=== PATIENT | male | born 1955 | race Caucasian/White ===

== ENCOUNTER 2018-04-22 12:00 | Emergency (ER) | payer MEDICARE, OTHER ==
[~2018-04-22] VITALS: Ht 185.4 cm; Wt 68.0 kg
[2018-04-22 12:37] VITALS: BP 131/93
[2018-04-22] MEDS ORDERED: TRAM50TA2 PO (14:18)
[2018-04-22] MEDS ORDERED: ketorolac trometh inj. 60 MG/2 ML VIAL IM ONE (14:20)
== END 2018-04-22 14:42 | disposition home or self-care (01) ==
LOC: ER 12:01
DX: S86.811A Strain of other muscle(s) and tendon(s) at lower leg level, right leg, initial encounter (principal); Z87.820 Personal history of traumatic brain injury; X58.XXXA Exposure to other specified factors, initial encounter; Y93.89 Activity, other specified; Y92.89 Other specified places as the place of occurrence of the external cause; Y99.9 Unspecified external cause status
CPT/HCPCS: 96372; 99283; J1885

== ENCOUNTER 2020-01-13 08:49 | Emergency (ER) | payer OTHER ==
[~2020-01-13] VITALS: Ht 188 cm; Wt 71.8 kg
[2020-01-13] MEDS ORDERED: tamsulosin 0.4mg capsule PO STA (09:28)
[2020-01-13] MEDS ORDERED: morphine 4 MG/ML inj SYRINge IV ONE (09:30)
[2020-01-13] MEDS ORDERED: normal saline 1000ML IV soln IVB ONE (09:30)
[2020-01-13] MEDS ORDERED: ondansetron/PF 4mg/2ml inj IV ONE (09:30)
[2020-01-13 09:38] LABS: BASOPHILS # (AUTO) 0.1 X10'3 (0-0.2); EOSINOPHILS # (AUTO) 0.1 X10'3 (0-0.9); EOSINOPHILS % (AUTO) 1.9 % (0-6); HEMATOCRIT 40.1 % (42.0-52.0); HEMOGLOBIN 13.7 g/dl (14.0-17.9); LYMPHOCYTES # (AUTO) 1.3 X10'3 (1.1-4.8); LYMPHOCYTES % (AUTO) 18.5 % (21-51); MEAN CORPUSCULAR HEMOGLOBIN 31.5 PG (27.0-31.0); MEAN CORPUSCULAR HGB CONC 34.2 g/dL (33.0-36.5); MEAN CORPUSCULAR VOLUME 92.3 FL (78-98); MEAN PLATELET VOLUME 8.8 FL (7.4-10.4); MONOCYTES # (AUTO) 0.5 X10'3 (0-0.9); NEUTROPHILS # (AUTO) 5.2 X10'3 (1.8-7.7); NEUTROPHILS % (AUTO) 71.6 % (42-75); PLATELET COUNT 183 X10'3 (140-440); RED BLOOD COUNT 4.35 X10'6 (4.70-6.10); RED CELL DISTRIBUTION WIDTH 13.2 % (11.5-14.5); WHITE BLOOD COUNT 7.3 X10'3 (4.5-11.0)
[2020-01-13 09:49] LABS: CLARITY,URINE CLOUDY (Clear); COLOR,URINE YELLOW (Yellow); GLUCOSE, URINE NEGATIVE (Neg); KETONES,URINE NEGATIVE (Neg); LEUKOCYTE ESTERASE ,URINE TRACE (Neg); NITRITES, URINE NEGATIVE (Neg); OCCULT BLOOD,URINE LARGE (Neg); PH,URINE 5.5 (4.8-8.0); PROTEIN,URINE 30 mg/dl (Neg); UA COLLECTION TYPE NON-SPECIFIED; UROBILINOGEN,URINE 0.2 E.U/dL (0.2-1.0)
[2020-01-13 09:54] LABS: ANION GAP 8 (8-16); CHLORIDE 107 MMOL/L (99-107); POTASSIUM 3.7 MMOL/L (3.5-5.1); SODIUM 138 MMOL/L (135-145); TOTAL CARBON DIOXIDE 23.5 MMOL/L (24-32)
[2020-01-13 09:56] LABS: BACTERIA,URINE FEW /HPF (Neg); RBC,URINE TNTC /HPF (0-2)
[2020-01-13 09:57] LABS: MUCUS STRANDS NONE SEEN /LPF (Neg); SQUAMOUS EPITHELIAL CELL,UR FEW /LPF (FEW); TRANSITIONAL EPI CELLS,URINE FEW /HPF
[2020-01-13 09:59] LABS: ALANINE AMINOTRANSFERASE 20 U/L (12-78); ALBUMIN 3.2 G/DL (3.4-5.0); ALKALINE PHOSPHATASE 79 IU/L (46-116); ASPARTATE AMINO TRANSFERASE 17 U/L (10-37); BILIRUBIN,TOTAL 0.6 MG/DL (0.1-1.0); BLOOD UREA NITROGEN 14 MG/DL (7-18); CALCIUM 8.2 MG/DL (8.5-10.1); GLUCOSE 159 MG/DL (70-104); TOTAL PROTEIN 6.3 G/DL (6.4-8.2); eGFR 76 ML/MIN
--- NOTE | 2020-01-13 10:39 | NUR ---
GUERITA [phone] CAREGIVER
[2020-01-13 11:27] VITALS: BP 168/99
[2020-01-13] MEDS ORDERED: DOXY100C77 PO (11:39)
[2020-01-13] MEDS ORDERED: HYDR-4353 PO (12:41)
== END 2020-01-13 13:37 | disposition home or self-care (01) ==
LOC: ER 08:49
DX: N30.90 Cystitis, unspecified without hematuria (principal); N13.30 Unspecified hydronephrosis; R30.0 Dysuria; R31.0 Gross hematuria; Z72.89 Other problems related to lifestyle; Z79.899 Other long term (current) drug therapy
CPT/HCPCS: 36415; 74176; 80053; 81001; 85025; 87088; 96374; 96375; 99284; J2270; J2405; J7030

== ENCOUNTER 2020-02-05 03:47 | Inpatient (IN) | payer OTHER ==
[~2020-02-05] VITALS: Ht 188 cm; Wt 75.0 kg
[2020-02-05] MEDS ORDERED: normal saline 1000ML IV soln IVB ONE (04:00)
[2020-02-05] MEDS ORDERED: ondansetron/PF 4mg/2ml inj IV ONE (04:00)
[2020-02-05] MEDS ORDERED: ketorolac trometh. 30mg/ml inj. IV ONE (04:00)
[2020-02-05] MEDS: morphine 4 MG/ML inj SYRINge IV PRN ×4 (04:13→09:25)
[2020-02-05 04:29] LABS: ALANINE AMINOTRANSFERASE 36 U/L (12-78); ALBUMIN 3.8 G/DL (3.4-5.0); ALKALINE PHOSPHATASE 101 IU/L (46-116); ANION GAP 5 (8-16); ASPARTATE AMINO TRANSFERASE 28 U/L (10-37); BILIRUBIN,TOTAL 0.4 MG/DL (0.1-1.0); BLOOD UREA NITROGEN 15 MG/DL (7-18); BUN/CREATININE RATIO 12.6 (5.4-32.0); CALCIUM 9.5 MG/DL (8.5-10.1); CHLORIDE 104 MMOL/L (99-107); CREATININE 1.19 MG/DL (0.60-1.10); GLUCOSE 115 MG/DL (70-104); POTASSIUM 4.6 MMOL/L (3.5-5.1); SODIUM 139 MMOL/L (135-145); TOTAL CARBON DIOXIDE 29.7 MMOL/L (24-32); TOTAL PROTEIN 7.5 G/DL (6.4-8.2); eGFR 62 ML/MIN
[2020-02-05 04:34] LABS: BASOPHILS # (AUTO) 0.1 X10'3 (0-0.2); BASOPHILS % (AUTO) 1.1 % (0-1); EOSINOPHILS # (AUTO) 0.1 X10'3 (0-0.9); HEMATOCRIT 41.1 % (42.0-52.0); HEMOGLOBIN 14.2 g/dl (14.0-17.9); LYMPHOCYTES % (AUTO) 28.2 % (21-51); MEAN CORPUSCULAR HEMOGLOBIN 31.5 PG (27.0-31.0); MEAN CORPUSCULAR HGB CONC 34.5 g/dL (33.0-36.5); MEAN CORPUSCULAR VOLUME 91.2 FL (78-98); MEAN PLATELET VOLUME 8.5 FL (7.4-10.4); MONOCYTES # (AUTO) 0.6 X10'3 (0-0.9); MONOCYTES % (AUTO) 8.5 % (2-12); NEUTROPHILS # (AUTO) 4.3 X10'3 (1.8-7.7); NEUTROPHILS % (AUTO) 60.2 % (42-75); PLATELET COUNT 209 X10'3 (140-440); RED BLOOD COUNT 4.51 X10'6 (4.70-6.10); WHITE BLOOD COUNT 7.1 X10'3 (4.5-11.0)
--- NOTE | 2020-02-05 04:50 | NUR ---
Continous bladder irrigation initiated per EDP orders. Pt. tolerated well.
[2020-02-05 04:53] LABS: CLARITY,URINE TURBID (Clear); COLOR,URINE RED (Yellow); UA COLLECTION TYPE URINAL
[2020-02-05] MEDS ORDERED: NO HOME MEDS (05:02)
[2020-02-05 05:10] LABS: BACTERIA,URINE NONE SEEN /HPF (Neg); MUCUS STRANDS NONE SEEN /LPF (Neg); RBC,URINE TNTC /HPF (0-2); SQUAMOUS EPITHELIAL CELL,UR NONE SEEN /LPF (FEW); WBC,URINE 0-4 /HPF (0-4)
--- NOTE | 2020-02-05 06:00 | NUR ---
Patient in room [facility]. I have received report from ALEC Truong and had the opportunity to ask questions and assume patient care. Addendum: 02/05/20 at 1834 by Paige Giang RN Addendum; Evie MICHAEL, at 1000 not 0600.
[2020-02-05] MEDS ORDERED: magnesium 4gm in 100ml NS 100 ML IV PRN (06:15)
[2020-02-05] MEDS ORDERED: HYDROmorphone inj. 0.5 MG/0.5 ML DISP.SYRIN IV PRN (06:15)
[2020-02-05] MEDS ORDERED: ondansetron/PF 4mg/2ml inj IV PRN (06:15)
[2020-02-05] MEDS ORDERED: magnesium hydroxide 30ml (MOM) UD suspension PO PRN (06:15)
[2020-02-05] MEDS ORDERED: mag hydrox/Alum hydrox/simeth 30ml oral suspension PO PRN (06:15)
[2020-02-05] MEDS ORDERED: potassium CL 10mEq/100ml bag 100 ML IV PRN ×2 (06:15)
[2020-02-05] MEDS ORDERED: magnesium 2GM in 50ml NS 50 ML IV PRN (06:15)
[2020-02-05] MEDS ORDERED: ipratropium/albuterol 3ml nebule NEB PRN (06:15)
[2020-02-05] MEDS ORDERED: acetaminophen 325mg tablet PO PRN (06:15)
[2020-02-05] MEDS ORDERED: potassium Cl 20 mEq SR tablet PO PRN ×2 (06:15)
--- NOTE | 2020-02-05 06:25 | NUR ---
drained 700cc from walker pink in color. continuous irrigation
--- NOTE | 2020-02-05 06:44 | NUR ---
pt c/o thirst. mouth swabs given.
--- NOTE | 2020-02-05 07:05 | NUR ---
SLEEPING QUIETLY AT THIS TIME.
[2020-02-05] MEDS: K and/or MAG REPLACEMENT MC SCH ×2 (08:00→20:00)
[2020-02-05] MEDS: HYDROmorphone 1 mg/ml syringe IV PRN ×3 (09:45→20:48)
--- NOTE | 2020-02-05 09:54 | NUR ---
1200cc urine out (CBI)
--- NOTE | 2020-02-05 09:55 | NUR ---
no relief from ms 4mg. dilaudid 1mg iv given by mukesh lozano
[2020-02-05 10:00] VITALS: BP 154/78
--- NOTE | 2020-02-05 10:10 | NUR ---
pt states, pain is now an 810
--- NOTE | 2020-02-05 18:33 | NUR ---
Problems reprioritized. Patient report given, questions answered & plan of care reviewed with ALEC Chun.
[2020-02-05 19:00] VITALS: BP 156/91
[2020-02-05] MEDS ORDERED: opium/belladonna alkaloids No. 15A 30mg rectal suppository RC ONE (21:00)
[2020-02-05] MEDS: tolterodine 2mg SR capsule (24hr) PO SCH (22:16)
[2020-02-06] VITALS: BP 172/83
--- NOTE | 2020-02-06 01:31 | NUR ---
pt resting comfortably at this time after many episodes of painful bladder spasms throughout earlier. will continue to monitor
[2020-02-06] MEDS: HYDROmorphone 1 mg/ml syringe IV PRN ×4 (02:10→20:22)
[2020-02-06 06:13] LABS: BASOPHILS # (AUTO) 0.1 X10'3 (0-0.2); BASOPHILS % (AUTO) 0.7 % (0-1); EOSINOPHILS # (AUTO) 0.1 X10'3 (0-0.9); EOSINOPHILS % (AUTO) 0.8 % (0-6); HEMATOCRIT 39.3 % (42.0-52.0); HEMOGLOBIN 13.7 g/dl (14.0-17.9); LYMPHOCYTES # (AUTO) 1.5 X10'3 (1.1-4.8); LYMPHOCYTES % (AUTO) 16.6 % (21-51); MEAN CORPUSCULAR HEMOGLOBIN 31.8 PG (27.0-31.0); MEAN CORPUSCULAR HGB CONC 34.9 g/dL (33.0-36.5); MEAN CORPUSCULAR VOLUME 91.2 FL (78-98); MEAN PLATELET VOLUME 8.4 FL (7.4-10.4); MONOCYTES # (AUTO) 0.6 X10'3 (0-0.9); MONOCYTES % (AUTO) 6.2 % (2-12); NEUTROPHILS # (AUTO) 6.8 X10'3 (1.8-7.7); NEUTROPHILS % (AUTO) 75.7 % (42-75); PLATELET COUNT 173 X10'3 (140-440); RED BLOOD COUNT 4.31 X10'6 (4.70-6.10); RED CELL DISTRIBUTION WIDTH 12.7 % (11.5-14.5)
[2020-02-06 06:23] LABS: ALANINE AMINOTRANSFERASE 32 U/L (12-78); ALBUMIN 3.5 G/DL (3.4-5.0); ALBUMIN/GLOBULIN RATIO 1.1 (1.1-1.5); ALKALINE PHOSPHATASE 76 IU/L (46-116); ANION GAP 7 (8-16); ASPARTATE AMINO TRANSFERASE 21 U/L (10-37); BILIRUBIN,TOTAL 0.8 MG/DL (0.1-1.0); BLOOD UREA NITROGEN 15 MG/DL (7-18); BUN/CREATININE RATIO 15.2 (5.4-32.0); CALCIUM 9.3 MG/DL (8.5-10.1); CHLORIDE 103 MMOL/L (99-107); CREATININE 0.99 MG/DL (0.60-1.10); GLUCOSE 99 MG/DL (70-104); MAGNESIUM 1.8 MG/DL (1.5-2.4); SODIUM 138 MMOL/L (135-145); TOTAL CARBON DIOXIDE 27.9 MMOL/L (24-32); TOTAL PROTEIN 6.8 G/DL (6.4-8.2); eGFR 76 ML/MIN
--- NOTE | 2020-02-06 06:31 | NUR ---
Patient in room [facility]. I have received report from ALEC Chun and had the opportunity to ask questions and assume patient care.
[2020-02-06 07:00] VITALS: BP 168/82
[2020-02-06] MEDS: K and/or MAG REPLACEMENT MC SCH ×2 (08:00→20:00)
[2020-02-06] MEDS: tolterodine 2mg SR capsule (24hr) PO SCH (08:02)
[2020-02-06] MEDS ORDERED: pneumococcal 23-VAL P-sac vacc 25 mcg/0.5ml vial IMVAC ONE (10:00)
[2020-02-06 11:16] VITALS: BP 153/84
[2020-02-06] MEDS ORDERED: LORazepam 2 mg/ml vial IV ONE (12:10)
[2020-02-06 13:24] LABS: URINE AMPHETAMINE SCREEN NEGATIVE (Neg); URINE BARBITUATE SCREEN NEGATIVE (Neg); URINE BENZODIAZEPINES SCREEN NEGATIVE (Neg); URINE CANNABINOID SCREEN NEGATIVE (Neg); URINE COCAINE SCREEN NEGATIVE (Neg); URINE METHADONE SCREEN NEGATIVE (Neg); URINE OPIATE SCREEN POSITIVE (Neg); URINE PHENCYCLIDINE SCREEN NEGATIVE (Neg)
[2020-02-06] MEDS: LORazepam 2 mg/ml vial IV PRN ×2 (14:24→20:00)
--- NOTE | 2020-02-06 18:16 | NUR ---
Problems reprioritized. Patient report given, questions answered & plan of care reviewed with ALEC Adams.
--- NOTE | 2020-02-06 18:35 | NUR ---
Patient in room [facility]. I have received report from Rosa MICHAEL and had the opportunity to ask questions and assume patient care.
[2020-02-06 19:45] VITALS: BP 168/95
[2020-02-06] MEDS: opium/belladonna alkaloids No. 15A 30mg rectal suppository RC PRN (20:27)
[2020-02-06] MEDS: metoprolol succinate 25mg (24-HOUR) SR. Tablet PO SCH (22:36)
[2020-02-06 23:44] VITALS: BP 155/85
[2020-02-07] MEDS: LORazepam 2 mg/ml vial IV PRN ×2 (01:04→23:09)
[2020-02-07] MEDS: HYDROmorphone 1 mg/ml syringe IV PRN ×3 (02:29→19:41)
[2020-02-07 05:20] LABS: BASOPHILS % (AUTO) 0.4 % (0-1); EOSINOPHILS # (AUTO) 0.1 X10'3 (0-0.9); EOSINOPHILS % (AUTO) 0.5 % (0-6); HEMATOCRIT 41.1 % (42.0-52.0); HEMOGLOBIN 14.3 g/dl (14.0-17.9); LYMPHOCYTES # (AUTO) 1.1 X10'3 (1.1-4.8); LYMPHOCYTES % (AUTO) 10.4 % (21-51); MEAN CORPUSCULAR HEMOGLOBIN 31.7 PG (27.0-31.0); MEAN CORPUSCULAR HGB CONC 34.9 g/dL (33.0-36.5); MEAN CORPUSCULAR VOLUME 90.8 FL (78-98); MEAN PLATELET VOLUME 8.2 FL (7.4-10.4); MONOCYTES # (AUTO) 0.7 X10'3 (0-0.9); MONOCYTES % (AUTO) 6.9 % (2-12); NEUTROPHILS # (AUTO) 8.8 X10'3 (1.8-7.7); NEUTROPHILS % (AUTO) 81.8 % (42-75); PLATELET COUNT 192 X10'3 (140-440); RED BLOOD COUNT 4.52 X10'6 (4.70-6.10); RED CELL DISTRIBUTION WIDTH 12.6 % (11.5-14.5); WHITE BLOOD COUNT 10.8 X10'3 (4.5-11.0)
[2020-02-07 05:31] LABS: ALANINE AMINOTRANSFERASE 37 U/L (12-78); ALBUMIN 3.7 G/DL (3.4-5.0); ALKALINE PHOSPHATASE 83 IU/L (46-116); ANION GAP 10 (8-16); ASPARTATE AMINO TRANSFERASE 28 U/L (10-37); BILIRUBIN,TOTAL 0.8 MG/DL (0.1-1.0); BLOOD UREA NITROGEN 21 MG/DL (7-18); BUN/CREATININE RATIO 19.6 (5.4-32.0); CALCIUM 9.5 MG/DL (8.5-10.1); CHLORIDE 103 MMOL/L (99-107); CREATININE 1.07 MG/DL (0.60-1.10); GLUCOSE 148 MG/DL (70-104); MAGNESIUM 1.9 MG/DL (1.5-2.4); SODIUM 139 MMOL/L (135-145); TOTAL PROTEIN 7.4 G/DL (6.4-8.2); eGFR 70 ML/MIN
--- NOTE | 2020-02-07 06:35 | NUR ---
Reported off to Nisreen MICHAEL
--- NOTE | 2020-02-07 06:59 | NUR ---
Total urine output for Noc shift was 35,850cc. Total CBI was [id number]
[2020-02-07 07:00] VITALS: BP 156/92
[2020-02-07] MEDS: K and/or MAG REPLACEMENT MC SCH ×2 (08:00→20:00)
[2020-02-07] MEDS: opium/belladonna alkaloids No. 15A 30mg rectal suppository RC PRN ×2 (09:07→21:33)
[2020-02-07 11:00] VITALS: BP 122/80
[2020-02-07] MEDS ORDERED: LIDOcaine 1%/PF 5ML 10 MG/ML VIAL ONE (11:36)
[2020-02-07] MEDS ORDERED: fentaNYL/PF 50MCG/1 ML 2ML syringe ONE ×2 (11:36→11:55)
[2020-02-07] MEDS ORDERED: iohexol 300 MG/1 ML 50ml polymer ONE (11:36)
[2020-02-07] MEDS ORDERED: midazolam 2 mg/2 ml injection ONE ×2 (11:36→11:38)
[2020-02-07] MEDS ORDERED: levoFLOXACIN-Levaquin 500mg/D5 100 ML IV ONE (11:50)
[2020-02-07] MEDS: metoprolol succinate 25mg (24-HOUR) SR. Tablet PO SCH (14:18)
[2020-02-07] MEDS: tolterodine 2mg SR capsule (24hr) PO SCH (14:18)
--- NOTE | 2020-02-07 18:41 | NUR ---
Problems reprioritized. Patient report given, questions answered & plan of care reviewed with Opal MICHAEL.
--- NOTE | 2020-02-07 18:45 | NUR ---
Patient in room [facility]. I have received report from IVONE MICHAEL and had the opportunity to ask questions and assume patient care.
[2020-02-07 20:00] VITALS: BP 143/84
[2020-02-08] VITALS: BP 132/82
[2020-02-08] MEDS: HYDROmorphone 1 mg/ml syringe IV PRN ×3 (00:39→09:56)
--- NOTE | 2020-02-08 02:59 | NUR ---
The 0104 dose of ativan on 02/06 was given to patient(0.5mg), and then wasted 0.5mg with Melissa Dinero RN. However, the machine timed out and did not recognize the pull, and then charge accounts audit clerk corrected the amounts so does not show in the omnicell.
[2020-02-08] MEDS: LORazepam 2 mg/ml vial IV PRN (03:54)
[2020-02-08] MEDS: opium/belladonna alkaloids No. 15A 30mg rectal suppository RC PRN (04:42)
[2020-02-08 04:50] LABS: BASOPHILS # (AUTO) 0.1 X10'3 (0-0.2); BASOPHILS % (AUTO) 0.5 % (0-1); EOSINOPHILS % (AUTO) 0.4 % (0-6); HEMATOCRIT 40.2 % (42.0-52.0); HEMOGLOBIN 13.9 g/dl (14.0-17.9); LYMPHOCYTES # (AUTO) 1.6 X10'3 (1.1-4.8); MEAN CORPUSCULAR HEMOGLOBIN 31.5 PG (27.0-31.0); MEAN CORPUSCULAR HGB CONC 34.7 g/dL (33.0-36.5); MEAN PLATELET VOLUME 8.6 FL (7.4-10.4); MONOCYTES # (AUTO) 0.9 X10'3 (0-0.9); MONOCYTES % (AUTO) 8.1 % (2-12); NEUTROPHILS # (AUTO) 8.7 X10'3 (1.8-7.7); PLATELET COUNT 203 X10'3 (140-440); RED BLOOD COUNT 4.42 X10'6 (4.70-6.10); RED CELL DISTRIBUTION WIDTH 12.7 % (11.5-14.5); WHITE BLOOD COUNT 11.3 X10'3 (4.5-11.0)
[2020-02-08 04:59] LABS: ALANINE AMINOTRANSFERASE 21 U/L (12-78); ALBUMIN 3.6 G/DL (3.4-5.0); ALBUMIN/GLOBULIN RATIO 0.8 (1.1-1.5); ALKALINE PHOSPHATASE 82 IU/L (46-116); ANION GAP 11 (8-16); ASPARTATE AMINO TRANSFERASE 21 U/L (10-37); BILIRUBIN,TOTAL 0.7 MG/DL (0.1-1.0); BLOOD UREA NITROGEN 28 MG/DL (7-18); BUN/CREATININE RATIO 25.2 (5.4-32.0); CALCIUM 9.5 MG/DL (8.5-10.1); CHLORIDE 104 MMOL/L (99-107); CREATININE 1.11 MG/DL (0.60-1.10); GLUCOSE 146 MG/DL (70-104); MAGNESIUM 1.8 MG/DL (1.5-2.4); SODIUM 140 MMOL/L (135-145); TOTAL CARBON DIOXIDE 24.6 MMOL/L (24-32); TOTAL PROTEIN 7.9 G/DL (6.4-8.2); eGFR 67 ML/MIN
--- NOTE | 2020-02-08 06:50 | NUR ---
Patient in room [facility]. I have received report from Mary MICHAEL and had the opportunity to ask questions and assume patient care.
[2020-02-08 07:00] VITALS: BP 153/96
[2020-02-08] MEDS: metoprolol succinate 25mg (24-HOUR) SR. Tablet PO SCH (07:21)
[2020-02-08] MEDS: tolterodine 2mg SR capsule (24hr) PO SCH (07:21)
[2020-02-08] MEDS: HYDROcodone/acetaminophen 5mg/325mg tablet PO PRN ×2 (07:21→11:53)
[2020-02-08] MEDS: K and/or MAG REPLACEMENT MC SCH (07:26)
[2020-02-08 12:18] VITALS: BP 121/85
[2020-02-08] MEDS ORDERED: LORA-269 PO (15:07)
[2020-02-08] MEDS ORDERED: METO-395 PO (15:07)
[2020-02-08] MEDS ORDERED: HYDR-4353 PO (15:07)
[2020-02-08] MEDS ORDERED: PHEN-824 PO (15:07)
[2020-02-08] MEDS ORDERED: DET2LAC PO (15:07)
--- NOTE | 2020-02-08 17:25 | NUR ---
patient discharged to Al his child daycare worker. Patient discharge was gone over with patient directly and was verbalized over the phone with Al. Catheter care education was focal point for patient and caregiver as well as medication changes and additions. Patient left with walker in place and [facility]. Patient is to be referred to [facility] also. Patient left with RX in hand and transported down to private vehicle via wheel chair. IV taken out prior to discharge and canula was whole and intact upon inspection.
== END 2020-02-08 17:27 | disposition home health service (06) | DRG 694 ==
LOC: ER 03:47 → ED HOLD 06:11 → SUR 3N 10:28 → OBSVTOIN 02-06 09:00 → CMPBEDREQ 02-06 18:48
PROVIDERS: ADMIT Family Medicine; ATTEND Family Medicine
PROC: 0T9430Z Drainage of Left Kidney Pelvis with Drainage Device, Percutaneous Approach (ICD-10-PCS; principal; 2020-02-06)
DX: N13.2 Hydronephrosis with renal and ureteral calculous obstruction (principal); R31.0 Gross hematuria; N21.0 Calculus in bladder; F15.10 Other stimulant abuse, uncomplicated; F17.200 Nicotine dependence, unspecified, uncomplicated; N32.89 Other specified disorders of bladder; Z85.51 Personal history of malignant neoplasm of bladder; Z87.820 Personal history of traumatic brain injury; I10 Essential (primary) hypertension
CPT/HCPCS: 36415; 50432; 74176; 80053; 80305; 81001; 83735; 85025; 87081; 90732; 94760; 96374; 96375; 97161; 97530; 99152; 99153; 99285; C1729; C1769; G0378; J1170; J1885; J1956; J2060; J2250; J2270; J2405; J3010; J7030; Q9967

== ENCOUNTER 2020-02-09 17:06 | Emergency (ER) | payer OTHER, MEDICARE ==
[~2020-02-09] VITALS: Ht 185.4 cm; Wt 68.2 kg
[~2020-02-09 17:06] MED LIST: DET2LAC PO; HYDR-4353 PO; LORA-269 PO; METO-395 PO; PHEN-824 PO
[2020-02-09] MEDS ORDERED: HYDROmorphone 1 mg/ml syringe IV ONE ×2 (17:40→19:35)
[2020-02-09] MEDS ORDERED: normal saline 1000ML IV soln IVB ONE (20:40)
[2020-02-09 22:38] VITALS: BP 158/91
== END 2020-02-09 22:40 | disposition home or self-care (01) ==
LOC: ER 17:06
DX: R31.0 Gross hematuria (principal); F15.90 Other stimulant use, unspecified, uncomplicated; Z72.89 Other problems related to lifestyle; Z79.899 Other long term (current) drug therapy
CPT/HCPCS: 96361; 96374; 96376; 99285; J1170; J7030; 96375

== ENCOUNTER 2020-02-26 18:39 | Emergency (ER) | payer OTHER, MEDICARE ==
[~2020-02-26] VITALS: Ht 188 cm; Wt 67.7 kg
[2020-02-26 19:25] LABS: BASOPHILS # (AUTO) 0.1 X10'3 (0-0.2); BASOPHILS % (AUTO) 0.9 % (0-1); EOSINOPHILS # (AUTO) 0.1 X10'3 (0-0.9); EOSINOPHILS % (AUTO) 1.2 % (0-6); HEMATOCRIT 41.1 % (42.0-52.0); HEMOGLOBIN 14.3 g/dl (14.0-17.9); LYMPHOCYTES # (AUTO) 1.3 X10'3 (1.1-4.8); LYMPHOCYTES % (AUTO) 14.1 % (21-51); MEAN CORPUSCULAR HEMOGLOBIN 31.5 PG (27.0-31.0); MEAN CORPUSCULAR HGB CONC 34.7 g/dL (33.0-36.5); MEAN CORPUSCULAR VOLUME 90.7 FL (78-98); MEAN PLATELET VOLUME 8.2 FL (7.4-10.4); MONOCYTES # (AUTO) 0.5 X10'3 (0-0.9); MONOCYTES % (AUTO) 5.4 % (2-12); NEUTROPHILS # (AUTO) 7.3 X10'3 (1.8-7.7); NEUTROPHILS % (AUTO) 78.4 % (42-75); PLATELET COUNT 256 X10'3 (140-440); RED BLOOD COUNT 4.53 X10'6 (4.70-6.10); RED CELL DISTRIBUTION WIDTH 12.6 % (11.5-14.5); WHITE BLOOD COUNT 9.4 X10'3 (4.5-11.0)
[2020-02-26 19:26] LABS: GLUCOSE, URINE NEGATIVE (Neg); KETONES,URINE TRACE mg/dl (Neg); OCCULT BLOOD,URINE LARGE (Neg); PROTEIN,URINE >=300 mg/dl (Neg)
[2020-02-26 19:32] LABS: CLARITY,URINE CLOUDY (Clear); LEUKOCYTE ESTERASE ,URINE TRACE (Neg)
[2020-02-26 19:33] LABS: COLOR,URINE DARK YELLOW (Yellow); UA COLLECTION TYPE URINAL
[2020-02-26 19:34] LABS: ALANINE AMINOTRANSFERASE 37 U/L (12-78); ALBUMIN 3.8 G/DL (3.4-5.0); ALBUMIN/GLOBULIN RATIO 0.9 (1.1-1.5); ALKALINE PHOSPHATASE 105 IU/L (46-116); ANION GAP 10 (8-16); ASPARTATE AMINO TRANSFERASE 24 U/L (10-37); BILIRUBIN,TOTAL 0.8 MG/DL (0.1-1.0); BLOOD UREA NITROGEN 15 MG/DL (7-18); BUN/CREATININE RATIO 16.5 (5.4-32.0); CALCIUM 9.5 MG/DL (8.5-10.1); CHLORIDE 100 MMOL/L (99-107); CREATININE 0.91 MG/DL (0.60-1.10); GLUCOSE 177 MG/DL (70-104); LIPASE 90 U/L (73-393); POTASSIUM 4.1 MMOL/L (3.5-5.1); SODIUM 136 MMOL/L (135-145); TOTAL CARBON DIOXIDE 25.6 MMOL/L (24-32); eGFR 84 ML/MIN
[2020-02-26 19:34] LABS: NITRITES, URINE NEGATIVE (Neg)
[2020-02-26 19:35] LABS: BACTERIA,URINE FEW /HPF (Neg); RBC,URINE TNTC /HPF (0-2); SQUAMOUS EPITHELIAL CELL,UR FEW /LPF (FEW); WBC,URINE 20-30 /HPF (0-4)
[2020-02-26] MEDS ORDERED: levoFLOXACIN 250mg tablet PO ONE (19:45)
[2020-02-26] MEDS ORDERED: normal saline 1000ML IV soln IV ONE (19:45)
[2020-02-26] MEDS ORDERED: LEVO750T21 PO (20:21)
[2020-02-26] MEDS ORDERED: HYDR-4353 PO (20:22)
--- NOTE | 2020-02-26 20:29 | NUR ---
given levoquin 750 mg po and 1st of 2 liter ns bolus started. pts friend, tere, is in the parking lot waiting for him for discharge. pt to be dc'd once fluids infused.
[2020-02-26 20:30] VITALS: BP 151/85
== END 2020-02-26 21:16 | disposition home or self-care (01) ==
LOC: ER 18:39
DX: N39.0 Urinary tract infection, site not specified (principal); C67.9 Malignant neoplasm of bladder, unspecified; F15.90 Other stimulant use, unspecified, uncomplicated; Z72.89 Other problems related to lifestyle; Z79.899 Other long term (current) drug therapy
CPT/HCPCS: 36415; 80053; 81001; 83690; 85025; 87077; 87088; 87186; 96360; 99284; J7030

== ENCOUNTER 2020-02-27 00:59 | Emergency (ER) | payer OTHER, MEDICARE ==
[~2020-02-27] VITALS: Ht 188 cm; Wt 67.7 kg
[~2020-02-27 00:59] MED LIST changes: +LEVO750T21 PO
[2020-02-27] MEDS ORDERED: HYDROcodone/acetaminophen 5mg/325mg tablet PO ONE (03:00)
--- NOTE | 2020-02-27 03:03 | NUR ---
Call out made to pt's caregiver "Al," awaiting call back. MD requests to speak with the caregiver for safe discharge plan.
[2020-02-27] MEDS ORDERED: oxyCODONE IR 5mg (immed. release) tablet PO ONE (03:05)
--- NOTE | 2020-02-27 04:06 | NUR ---
Second call out placed to caregive "Al." Awaiting call back.
[2020-02-27 04:59] VITALS: BP 153/103
== END 2020-02-27 05:01 | disposition home or self-care (01) ==
LOC: ER 01:00
DX: N39.0 Urinary tract infection, site not specified (principal); R10.9 Unspecified abdominal pain; F17.200 Nicotine dependence, unspecified, uncomplicated; F15.90 Other stimulant use, unspecified, uncomplicated; Z79.899 Other long term (current) drug therapy
CPT/HCPCS: 99284

== ENCOUNTER 2020-05-14 14:44 | Emergency (ER) | payer OTHER, MEDICARE ==
[~2020-05-14] VITALS: Ht 177.8 cm; Wt 80.0 kg
[~2020-05-14 14:44] MED LIST changes: -HYDR-4353 PO; -LEVO750T21 PO
[2020-05-14] MEDS ORDERED: morphine 4 MG/ML inj SYRINge IV ONE (15:10)
[2020-05-14] MEDS ORDERED: ondansetron/PF 4mg/2ml inj IV ONE (15:10)
[2020-05-14 15:22] LABS: BASOPHILS # (AUTO) 0.1 X10'3 (0-0.2); BASOPHILS % (AUTO) 1.3 % (0-1); EOSINOPHILS # (AUTO) 0.2 X10'3 (0-0.9); EOSINOPHILS % (AUTO) 2.3 % (0-6); HEMATOCRIT 36.2 % (42.0-52.0); HEMOGLOBIN 12.4 g/dl (14.0-17.9); LYMPHOCYTES # (AUTO) 1.2 X10'3 (1.1-4.8); LYMPHOCYTES % (AUTO) 15.3 % (21-51); MEAN CORPUSCULAR HEMOGLOBIN 30.2 PG (27.0-31.0); MEAN CORPUSCULAR HGB CONC 34.2 g/dL (33.0-36.5); MEAN CORPUSCULAR VOLUME 88.3 FL (78-98); MEAN PLATELET VOLUME 7.5 FL (7.4-10.4); MONOCYTES # (AUTO) 0.6 X10'3 (0-0.9); NEUTROPHILS % (AUTO) 74.1 % (42-75); PLATELET COUNT 247 X10'3 (140-440); RED CELL DISTRIBUTION WIDTH 13.8 % (11.5-14.5)
[2020-05-14 15:38] LABS: ALANINE AMINOTRANSFERASE 22 U/L (12-78); ALBUMIN 3.1 G/DL (3.4-5.0); ALBUMIN/GLOBULIN RATIO 0.8 (1.1-1.5); ALKALINE PHOSPHATASE 94 IU/L (46-116); ANION GAP 5 (8-16); ASPARTATE AMINO TRANSFERASE 17 U/L (10-37); BILIRUBIN,TOTAL 0.5 MG/DL (0.1-1.0); BLOOD UREA NITROGEN 11 MG/DL (7-18); BUN/CREATININE RATIO 13.8 (5.4-32.0); CALCIUM 9.3 MG/DL (8.5-10.1); CHLORIDE 106 MMOL/L (99-107); GLUCOSE 226 MG/DL (70-104); LIPASE 62 U/L (73-393); SODIUM 140 MMOL/L (135-145); TOTAL CARBON DIOXIDE 28.9 MMOL/L (24-32); TOTAL PROTEIN 6.9 G/DL (6.4-8.2); eGFR > 90 ML/MIN
[2020-05-14 16:05] LABS: CLARITY,URINE TURBID (Clear); COLOR,URINE YELLOW (Yellow); GLUCOSE, URINE 100 mg/dl (Neg); KETONES,URINE NEGATIVE (Neg); LEUKOCYTE ESTERASE ,URINE MODERATE (Neg); NITRITES, URINE POSITIVE (Neg); OCCULT BLOOD,URINE LARGE (Neg); PROTEIN,URINE >=300 mg/dl (Neg)
[2020-05-14 16:07] LABS: UA COLLECTION TYPE CLN CATCH MIDSTREAM
[2020-05-14 16:11] LABS: SQUAMOUS EPITHELIAL CELL,UR FEW /LPF (FEW); WBC,URINE TNTC /HPF (0-4)
[2020-05-14 16:12] LABS: RBC,URINE TNTC /HPF (0-2)
[2020-05-14 16:13] LABS: BACTERIA,URINE 3+ /HPF (Neg); WBC CLUMPS,URINE MODERATE /HPF (NEGATIVE)
[2020-05-14] MEDS ORDERED: HYDR-4353 PO (16:13)
[2020-05-14] MEDS ORDERED: CEPH250T PO (16:13)
[2020-05-14] MEDS ORDERED: ONDA4TAB6 PO (16:13)
[2020-05-14 16:15] LABS: TRANSITIONAL EPI CELLS,URINE FEW /HPF
[2020-05-14 17:24] VITALS: BP 163/96
== END 2020-05-14 17:22 | disposition home or self-care (01) ==
LOC: ER 14:45
DX: N30.90 Cystitis, unspecified without hematuria (principal); R10.84 Generalized abdominal pain; F15.90 Other stimulant use, unspecified, uncomplicated; Z87.440 Personal history of urinary (tract) infections; Z85.51 Personal history of malignant neoplasm of bladder; Z98.890 Other specified postprocedural states; Z79.2 Long term (current) use of antibiotics; Z79.899 Other long term (current) drug therapy
CPT/HCPCS: 36415; 80053; 81001; 83690; 85025; 87077; 87088; 87186; 96374; 96375; 99284; J2270; J2405

== ENCOUNTER 2020-05-21 15:56 | Emergency (ER) | payer OTHER, MEDICARE ==
[~2020-05-21] VITALS: Ht 185.4 cm; Wt 72.7 kg
[~2020-05-21 15:56] MED LIST changes: +CEPH250T PO; +ONDA4TAB6 PO
[2020-05-21] MEDS ORDERED: morphine 4 MG/ML inj SYRINge IM ONE ×2 (16:25→17:55)
[2020-05-21] MEDS ORDERED: ondansetron inj. 24 MG in normal saline 250ml IV soln 228 ML IV ONE (16:25)
[2020-05-21 16:40] LABS: BASOPHILS # (AUTO) 0.1 X10'3 (0-0.2); BASOPHILS % (AUTO) 1.2 % (0-1); EOSINOPHILS # (AUTO) 0.3 X10'3 (0-0.9); EOSINOPHILS % (AUTO) 2.4 % (0-6); HEMATOCRIT 38.2 % (42.0-52.0); HEMOGLOBIN 12.9 g/dl (14.0-17.9); LYMPHOCYTES # (AUTO) 1.6 X10'3 (1.1-4.8); LYMPHOCYTES % (AUTO) 14.4 % (21-51); MEAN CORPUSCULAR HEMOGLOBIN 29.9 PG (27.0-31.0); MEAN CORPUSCULAR HGB CONC 33.6 g/dL (33.0-36.5); MEAN PLATELET VOLUME 7.8 FL (7.4-10.4); MONOCYTES # (AUTO) 0.8 X10'3 (0-0.9); MONOCYTES % (AUTO) 6.7 % (2-12); NEUTROPHILS # (AUTO) 8.4 X10'3 (1.8-7.7); NEUTROPHILS % (AUTO) 75.3 % (42-75); PLATELET COUNT 285 X10'3 (140-440); RED BLOOD COUNT 4.29 X10'6 (4.70-6.10); RED CELL DISTRIBUTION WIDTH 14.1 % (11.5-14.5); WHITE BLOOD COUNT 11.2 X10'3 (4.5-11.0)
[2020-05-21 17:00] LABS: CLARITY,URINE CLOUDY (Clear); COLOR,URINE AMBER (Yellow); GLUCOSE, URINE NEGATIVE (Neg); KETONES,URINE TRACE mg/dl (Neg); LEUKOCYTE ESTERASE ,URINE TRACE (Neg); NITRITES, URINE NEGATIVE (Neg); OCCULT BLOOD,URINE LARGE (Neg); PROTEIN,URINE 100 mg/dl (Neg)
[2020-05-21 17:02] LABS: UA COLLECTION TYPE CLN CATCH MIDSTREAM
[2020-05-21 17:05] LABS: ALANINE AMINOTRANSFERASE 22 U/L (12-78); ALBUMIN 3.7 G/DL (3.4-5.0); ALBUMIN/GLOBULIN RATIO 0.9 (1.1-1.5); ALKALINE PHOSPHATASE 87 IU/L (46-116); ANION GAP 10 (8-16); ASPARTATE AMINO TRANSFERASE 17 U/L (10-37); BILIRUBIN,TOTAL 0.5 MG/DL (0.1-1.0); BLOOD UREA NITROGEN 26 MG/DL (7-18); BUN/CREATININE RATIO 30.2 (5.4-32.0); CALCIUM 9.9 MG/DL (8.5-10.1); CHLORIDE 105 MMOL/L (99-107); CREATININE 0.86 MG/DL (0.60-1.10); GLUCOSE 141 MG/DL (70-104); SODIUM 142 MMOL/L (135-145); TOTAL CARBON DIOXIDE 26.8 MMOL/L (24-32); TOTAL PROTEIN 7.6 G/DL (6.4-8.2); eGFR 90 ML/MIN
[2020-05-21 17:06] LABS: POTASSIUM 3.8 MMOL/L (3.5-5.1)
[2020-05-21 17:08] LABS: URINE AMPHETAMINE SCREEN POSITIVE (Neg); URINE BARBITUATE SCREEN NEGATIVE (Neg); URINE BENZODIAZEPINES SCREEN NEGATIVE (Neg); URINE CANNABINOID SCREEN POSITIVE (Neg); URINE COCAINE SCREEN NEGATIVE (Neg); URINE METHADONE SCREEN NEGATIVE (Neg); URINE OPIATE SCREEN POSITIVE (Neg); URINE PHENCYCLIDINE SCREEN NEGATIVE (Neg)
[2020-05-21 17:09] LABS: BACTERIA,URINE 2+ /HPF (Neg); RBC,URINE TNTC /HPF (0-2); SQUAMOUS EPITHELIAL CELL,UR FEW /LPF (FEW); WBC,URINE 20-30 /HPF (0-4)
[2020-05-21 17:10] LABS: MUCUS STRANDS FEW /LPF (Neg); TRANSITIONAL EPI CELLS,URINE FEW /HPF
--- NOTE | 2020-05-21 17:43 | NUR ---
Pt refused f/c. Provider aware. Pt reports pain has decreased, but still in pain.
[2020-05-21 17:44] VITALS: BP 165/88
[2020-05-21] MEDS ORDERED: CEPH-572 PO (17:52)
[2020-05-21] MEDS ORDERED: OXYB5TAB29 PO (17:52)
== END 2020-05-21 19:14 | disposition home or self-care (01) ==
LOC: ER 15:56
DX: N32.89 Other specified disorders of bladder (principal); N39.0 Urinary tract infection, site not specified; R10.13 Epigastric pain; F15.90 Other stimulant use, unspecified, uncomplicated; Z85.51 Personal history of malignant neoplasm of bladder; Z98.890 Other specified postprocedural states; Z79.2 Long term (current) use of antibiotics; Z79.899 Other long term (current) drug therapy; Z72.89 Other problems related to lifestyle
CPT/HCPCS: 36415; 80053; 80305; 81001; 85025; 87088; 96372; 99284; J2270

== ENCOUNTER → 2020-06-06 | Emergency (ER) | payer OTHER, MEDICARE ==
[~2020-06-06] MED LIST changes: +CEPH-572 PO; -CEPH250T PO; +OXYB5TAB29 PO
--- NOTE | 2020-06-06 15:14 | NUR ---
PT YELLING AT STAFF WHEN FOUND URINATING IN A TRASH CAN. PT BECAME BELLOGERAMT REQUIRING SECURITY TO BE CALLED AND PT STATING THAT HE WANTS TO GO HOME. PT WAS EXCORTED OUT OF THE ER BY SECURITY, DR SLAUGHTER NOTIFIED.
== END | disposition left against medical advice (07) ==
LOC: ER 14:54
DX: R45.6 Violent behavior (principal); Z53.21 Procedure and treatment not carried out due to patient leaving prior to being seen by health care provider